=== PATIENT | female | born 1960 | race Caucasian/White ===

== ENCOUNTER 2016-11-07 10:10 | Outpatient (CLI) | payer OTHER | END 2016-11-07 23:59 | DX: E78.00 Pure hypercholesterolemia, unspecified (principal); R73.01 Impaired fasting glucose; D72.829 Elevated white blood cell count, unspecified ==

== ENCOUNTER 2017-07-18 13:09 | Outpatient (CLI) | payer OTHER ==
--- NOTE | 2017-07-30 18:03 | Mammography Report ---
DATE OF SERVICE: 07/18/2017 DIGITAL SCREENING MAMMOGRAM: 07/18/2017 CLINICAL INDICATION: A 57-year-old, for screening. COMPARISON: The patient reports having had previous mammograms in [place], [place], but films are not yet available for direct comparison. If they become available, an addendum will be issued. FINDINGS: The breasts demonstrate scattered fibroglandular densities bilaterally. Punctate, typically benign calcifications are present. No suspicious masses, clustered microcalcifications, or regions of architectural distortion are identified. IMPRESSION: BENIGN FINDINGS. RECOMMENDATION: ROUTINE ANNUAL SCREENING UNLESS OTHERWISE CLINICALLY INDICATED. BIRADS CATEGORY 2-BENIGN FINDINGS. STANDARD QUALIFYING STATEMENTS: 1. This examination was reviewed with the aid of Computer-Aided Detection (CAD). 2. A negative or benign imaging report should not delay biopsy if clinically suspicious findings are present. Consider surgical consultation if warranted. More than 5% of cancers are not identified by imaging. 3. Dense breasts may obscure an underlying neoplasm. TD: 07/30/2017 19:01
== END 2017-07-18 13:10 | disposition home or self-care (01) ==
LOC: DI.S 13:09
DX: Z12.31 Encounter for screening mammogram for malignant neoplasm of breast (principal)
CPT/HCPCS: 77067

== ENCOUNTER 2018-02-14 00:10 | Emergency (ER) | payer OTHER ==
[2018-02-14] MEDS ORDERED: IPRATROPIUM/ALBUTEROL 3 ML NEB INH STA (00:32)
[2018-02-14 01:05] VITALS: BP 115/81
--- NOTE | 2018-02-14 01:06 | XRAY Report ---
Procedure Date: 02/14/2018 Accession Number: [id number] / [id number] Procedure: XR - Chest 2 View X-Ray CPT Code: 24180 FULL RESULT: EXAM: CHEST RADIOGRAPHY EXAM DATE: 02/14/2018 12:53 AM. CLINICAL HISTORY: Chest pain COMPARISON: None. TECHNIQUE: 2 views. FINDINGS: Lungs/Pleura: No alveolar consolidation or pleural effusion seen. No pneumothorax. Mediastinum: Heart and mediastinal contours are unremarkable. Other: None. IMPRESSION: 1. No acute abnormality seen in the chest. RADIA
[2018-02-14] MEDS ORDERED: BENZONATATE 100 MG CAPSULE PO STA (01:11)
[2018-02-14] MEDS ORDERED: predniSONE 20 MG TABLET PO STA (01:11)
--- NOTE | 2018-02-14 01:19 | ED Physician Documentation ---
History of Present Illness - Stated complaint Stated Complaint: COUGH,VOMITING - Chief complaint Chief Complaint: Resp - History obtained from History obtained from: Patient - Additonal information Additional information: 57-year-old female presents the emergency department with increasing cough, nasal congestion, wheezing and posttussive emesis. The patient's symptoms have progressively worsened over the past several days. The patient reports fevers, chills and body aches. No relieving factors. No triggering factors. No other associated symptoms. The patient denies peripheral edema, chest pain or dyspnea on exertion. No other associated symptoms. Symptoms are described as moderate. Review of Systems Constitutional: reports: Fever, Chills, Fatigue Eyes: denies: Discharge Ears: denies: Ear pain Nose: reports: Rhinorrhea / runny nose, Congestion Cardiac: denies: Palpitations, Pedal edema Respiratory: reports: Cough, Wheezing GI: reports: Vomiting Skin: denies: Rash Immunocompromised: denies: Chemotherapy PD PAST MEDICAL HISTORY - Past Medical History Past Medical History: No Cardiovascular: None Respiratory: None Neuro: None Endocrine/Autoimmune: None GI: None [employer]PER[employer]OR: None : None HEENT: None Psych: None Musculoskeletal: None Derm: None - Past Surgical History Past Surgical History: Yes General: Cholecystectomy, Appendectomy, Splenectomy Ortho: Other - Present Medications Home Medications: Ambulatory Orders Medication Instructions Recorded Confirmed Albuterol Sulf [Ventolin Hfa 1 - 2 puffs INH Q4HR PRN #1 inhaler 02/14/18 Inhaler] Benzonatate [Tessalon Perle] 100 - 200 mg PO TID PRN #30 capsule 02/14/18 predniSONE [Prednisone] 60 mg PO DAILY #12 tablet 02/14/18 - Allergies Allergies/Adverse Reactions: Allergies Allergy/AdvReac Type Severity Reaction Status Date / Time Sulfa (Sulfonamide AdvReac Rash Verified 02/14/18 00:35 Antibiotics) - Social History Does the pt smoke?: No Smoking Status: Never smoker Does the pt drink ETOH?: No Does the pt have substance abuse?: No - Immunizations Immunizations are current?: Yes - POLST Patient has POLST: No PD ED PE NORMAL - General General: Alert and oriented X 3, No acute distress - HEENT HEENT: Atraumatic, PERRL, EOMI, Ears normal - Neck Neck: No JVD - Cardiac Cardiac: RRR, Strong equal pulses - Respiratory Respiratory: No respiratory distress, Other (Trace expiratory wheezesBilateral) - Extremities Extremities: No deformity, No edema - Neuro Neuro: Alert and oriented X 3, Normal speech - Psych Psych: Normal mood Results - Vitals Vitals: Vital Signs - 24 hr 02/14/18 02/14/18 02/14/18 00:22 00:56 01:04 Temperature 36.7 C Heart Rate 80 79 71 Respiratory 19 20 18 Rate Blood Pressure 142/92 H 115/81 H O2 Saturation 97 99 02/14/18 01:10 Temperature Heart Rate 82 Respiratory 14 Rate Blood Pressure 115/81 H O2 Saturation 97 Oxygen O2 Source Room air - Rads (name of study) CXR Radiology: Final report received (NAD) PD MEDICAL DECISION MAKING - ED course ED course: The patient's symptoms seem to be secondary to a viral bronchitis, the patient had improvement with a DuoNeb while in the emergency department. The patient appears appropriate for management as an outpatient. I discussed the natural course of a viral etiology. I discussed warning signs and recommended returning to the emergency department immediately for any worsening or any concerns. - Sepsis Event Vital Signs: Vital Signs - 24 hr 02/14/18 02/14/18 02/14/18 00:22 00:56 01:04 Temperature 36.7 C Heart Rate 80 79 71 Respiratory 19 20 18 Rate Blood Pressure 142/92 H 115/81 H O2 Saturation 97 99 02/14/18 01:10 Temperature Heart Rate 82 Respiratory 14 Rate Blood Pressure 115/81 H O2 Saturation 97 Oxygen O2 Source Room air Departure - Departure Disposition: 01 Home, Self Care Clinical Impression: Bronchitis Condition: Good Instructions: ED Upper Resp Infec No Abx Tx Ch, ED Reactive Airway Disease Follow-Up: Alex Merritt MD [Primary Care Provider] - Within 1 week Prescriptions: Albuterol Sulf [Ventolin Hfa Inhaler] 1 - 2 puffs INH Q4HR PRN #1 inhaler PRN Reason: Shortness Of Air/Wheezing Benzonatate [Tessalon Perle] 100 - 200 mg PO TID PRN #30 capsule PRN Reason: Cough predniSONE [Prednisone] 60 mg PO DAILY #12 tablet Comments: Please return to the emergency department for worsening symptoms or any concerns
== END 2018-02-14 01:30 | disposition home or self-care (01) ==
LOC: ED 00:10
DX: J20.8 Acute bronchitis due to other specified organisms (principal)
CPT/HCPCS: 71046; 94640; 94664; 99283; A9270; J7512

== ENCOUNTER 2018-04-03 13:04 | Outpatient (CLI) | payer OTHER ==
--- NOTE | 2018-04-03 14:10 | XRAY Report ---
Reason: COUGH CONGESTION Procedure Date: 04/03/2018 Accession Number: [id number] / [id number] Procedure: XR - Chest 2 View X-Ray CPT Code: 63058 FULL RESULT: EXAM: CHEST RADIOGRAPHY EXAM DATE: 04/03/2018 01:30 PM. CLINICAL HISTORY: Cough, congestion. COMPARISON: 02/14/2018. TECHNIQUE: 2 views. FINDINGS: Lungs/Pleura: There is new focal ill-defined nodular hyperdensity, 9 mm in diameter, superimposed with the left anterior first rib in the PA view and not visualized in the lateral view; otherwise, no focal opacities evident. No pleural effusion. No pneumothorax. Normal volumes. Mediastinum: Heart and mediastinal contours are unremarkable. Other: None. IMPRESSION: A new small non-specific left apical focal opacity versus chest wall density; otherwise, negative 2-view chest radiography. If clinical warranted, additional lordotic view exam or follow-up by chest x-ray 2 views in 4-5 weeks is recommended. RADIA
== END 2018-04-03 13:05 | disposition home or self-care (01) ==
LOC: DI 13:04
PROVIDERS: ATTEND Nurse Practitioner Family
DX: R05 Cough (principal); R09.89 Other specified symptoms and signs involving the circulatory and respiratory systems
CPT/HCPCS: 71046

== ENCOUNTER 2018-05-26 13:04 | Outpatient (CLI) | payer OTHER ==
--- NOTE | 2018-05-26 16:08 | XRAY Report ---
Reason: Cough Procedure Date: 05/26/2018 Accession Number: [id number] / [id number] Procedure: XR - Chest 3 View X-Ray CPT Code: 55063 FULL RESULT: EXAM: CHEST RADIOGRAPHY EXAM DATE: 05/26/2018 02:23 PM. CLINICAL HISTORY: Productive cough. COMPARISON: 04/03/2018. 02/14/2018. TECHNIQUE: 2 views. FINDINGS: Lungs/Pleura: No consolidation. No vascular congestion. No pneumothorax. The density previously described and noted projected along the left anterior first rib not distinctly seen on the current study and no associated parenchymal abnormality seen in the left lung apex on the apical lordotic view. Mediastinum: Heart size and mediastinal contour are stable. Other: Mild degenerative change thoracic spine. IMPRESSION: 1. No acute disease in the chest. No parenchymal lung abnormality is identified in the left lung apex to coincide with the density noted on the 04/03/2018 chest x-ray. RADIA
== END 2018-05-26 13:05 | disposition home or self-care (01) ==
LOC: DI 13:04
PROVIDERS: ATTEND Nurse Practitioner Family
DX: R05 Cough (principal)
CPT/HCPCS: 71047

== ENCOUNTER 2018-06-23 13:27 | Outpatient (CLI) | payer OTHER | END 2018-06-23 13:28 | disposition home or self-care (01) | LOC: RT 13:27 | PROVIDERS: ATTEND Nurse Practitioner Family | DX: R05 Cough (principal) | CPT/HCPCS: 94010 ==

== ENCOUNTER 2020-02-07 07:17 | Outpatient (CLI) | payer OTHER ==
[2020-02-07 15:06] LABS: BASOPHILS # (AUTO) 0.1 10^3/uL (0.0-0.1); EOSINOPHILS # (AUTO) 0.3 10^3/uL (0.0-0.7); EOSINOPHILS % (AUTO) 3.4 %; HGB - HEMOGLOBIN 14.2 g/dL (12.0-16.0); LYMPHOCYTES # (AUTO) 3.9 10^3/uL (1.5-3.5); LYMPHOCYTES % (AUTO) 47.7 %; MEAN CORPUSCULAR HEMOGLOBIN 32.7 pg (27.0-31.0); MEAN CORPUSCULAR HGB CONC 33.1 g/dL (32.0-36.0); MEAN CORPUSCULAR VOLUME 98.8 fL (81.0-99.0); MEAN PLATELET VOLUME 10.2 fL (7.9-10.8); MONOCYTES # (AUTO) 0.8 10^3/uL (0.0-1.0); MONOCYTES % (AUTO) 9.4 %; NEUTROPHILS # (AUTO) 3.2 10^3/uL (1.5-6.6); NEUTROPHILS % (AUTO) 38.3 %; PLT - PLATELET COUNT 470 10^3/uL (130-450); RED BLOOD COUNT 4.34 10^6/uL (4.20-5.40); RED CELL DISTRIBUTION WIDTH 13.7 % (12.0-15.0); WHITE BLOOD COUNT 8.2 x10^3/uL (4.8-10.8)
[2020-02-07 15:31] LABS: ALBUMIN 4.4 g/dL (3.2-5.5); ALBUMIN/GLOBULIN RATIO 1.5 (1.0-2.2); ALKALINE PHOSPHATASE 85 IU/L (42-121); ALT ALANINE AMINOTRANSFERASE 29 IU/L (10-60); AST ASPARTATE AMINOTRANSFERASE 26 IU/L (10-42); BILIRUBIN,TOTAL 0.5 mg/dL (0.2-1.0); BUN - BLOOD UREA NITROGEN 17 mg/dL (6-20); CALCIUM 9.4 mg/dL (8.5-10.3); CARBON DIOXIDE - CO2 27 mmol/L (21-32); CHLORIDE 104 mmol/L (101-111); CHOL/HDL RATIO 4.2 (<4.4); CHOLESTEROL 242 mg/dL; CREATININE 0.7 mg/dL (0.4-1.0); GLUCOSE 102 mg/dL (70-100); HDL CHOLESTEROL 58 mg/dL; LDL CHOLESTEROL,CALCULATED 132 mg/dL; LDL/HDL RATIO 2.3 (<4.4); SODIUM 138 mmol/L (135-145); TOTAL PROTEIN 7.4 g/dL (6.7-8.2); VLDL CHOLESTEROL 52 mg/dL
[2020-02-08 10:44] LABS: HEPATITIS C ANTIBODY NON-REACTIVE (NON-REACTIVE)
== END 2020-02-07 07:18 | disposition home or self-care (01) ==
LOC: LAB.S 07:17
PROVIDERS: ATTEND Internal Medicine
DX: Z13.6 Encounter for screening for cardiovascular disorders (principal); Z79.899 Other long term (current) drug therapy; F32.9 Major depressive disorder, single episode, unspecified; D72.9 Disorder of white blood cells, unspecified; F41.9 Anxiety disorder, unspecified; G47.00 Insomnia, unspecified; Z11.59 Encounter for screening for other viral diseases; Z90.81 Acquired absence of spleen
CPT/HCPCS: 36415; 80053; 80061; 82306; 83721; 84443; 85025; 86803

== ENCOUNTER 2020-10-12 14:36 | Outpatient (CLI) | payer OTHER ==
--- NOTE | 2020-10-12 17:08 | XRAY Report ---
PROCEDURE: Chest 2 View X-Ray INDICATIONS: COUGH TECHNIQUE: 2 view(s) of the chest. COMPARISON: 05/26/2018. FINDINGS: Surgical changes and devices: None. Lungs and pleura: No pleural effusions or pneumothorax. Lungs are clear. Mediastinum: Mediastinal contours are normal. Heart size is normal. Bones and chest wall: No suspicious bony abnormalities. Soft tissues appear unremarkable. IMPRESSION: Stable examination of the chest without acute cardiopulmonary abnormalities. Reviewed by: Bro Barone MD on 10/12/2020 5:06 PM PDT Approved by: Bro Barone MD on 10/12/2020 5:06 PM PDT Station ID: [id number]
== END 2020-10-12 14:37 | disposition home or self-care (01) ==
LOC: DI 14:36
PROVIDERS: ATTEND Internal Medicine
DX: R05 Cough (principal)

== ENCOUNTER 2021-01-11 14:05 | Outpatient (CLI) | payer OTHER ==
--- NOTE | 2021-01-12 11:23 | Mammography Report ---
BILATERAL DIGITAL SCREENING MAMMOGRAM 3D/2D: 01/11/2021 CLINICAL: Routine screening. Comparison is made to exams dated: 11/13/2018 mammogram and 07/18/2017 mammogram - [facility]. The tissue of both breasts is predominantly fatty. There is architectural distortion in the right breast posterior depth central to the nipple seen on t he craniocaudal view only. There also is a mass in the right breast at 9 o'clock anterior depth. No other significant masses, calcifications, or other findings are seen in either breast. IMPRESSION: INCOMPLETE: NEEDS ADDITIONAL IMAGING EVALUATION The architectural distortion in the right breast posterior depth central to the nipple seen on the cr aniocaudal view only is indeterminate. Additional views with possible ultrasound are recommended. The mass in the right breast at 9 o'clock anterior depth is indeterminate. Additional views with pos sible ultrasound are recommended. This exam was interpreted at Station ID: [id number]. NOTE: For mammograms, a report in lay terms will be sent to the patient. Approximately 15% of breast malignancies will not be visualized mammographically. In the management of a palpable breast mass, a negative mammogram must not discourage biopsy of a clinically suspicious lesion. Electronically Signed By: Nasir Hurley M.D., jr/zoya:01/11/2021 16:20:14 ACR BI-RADS Category 0: Incomplete 3340F PARENCHYMAL PATTERN: (F) - The breast(s) demonstrate(s) diffuse fatty replacement. BI-RADS CATEGORY: (0) - 0 RECOMMENDATION: (ADDMAM) - Recommend additional mammographic views. [id number] Immediate follow-up LATERALITY: (B)
== END 2021-01-11 14:06 | disposition home or self-care (01) ==
LOC: DI 14:05
DX: Z12.31 Encounter for screening mammogram for malignant neoplasm of breast (principal); R92.8 Other abnormal and inconclusive findings on diagnostic imaging of breast

== ENCOUNTER 2021-02-07 11:14 | Outpatient (CLI) | payer OTHER ==
--- NOTE | 2021-02-08 12:10 | Ultrasound Report ---
LIMITED ULTRASOUND OF RIGHT BREAST: 02/07/2021 CLINICAL: Patient returns today to evaluate a focal asymmetry in the right breast. Comparison is made to exams dated: 02/07/2021 mammogram, 01/11/2021 mammogram, 11/13/2018 mammogram, and 07/18/2017 mammogram - [facility]. Color flow ultrasound of the right breast 7-11 o'clock, and retroareolar regions was performed on the areas of interest. Lomeli scale images of the real-time examination were reviewed. There is a 0.5 cm x 0.2 cm x 0.4 cm oval cyst with a septated internal wall in the right breast at 6 o'clock anterior depth. This oval cyst is hypoechoic with a well-defined boundary and posterior acou stic enhancement. This correlates with mammography findings. Color flow imaging demonstrates that t here is no vascularity present. No discrete cystic or solid mass lesion identified in the area of mammographic abnormality in the pos terior lateral right breast. IMPRESSION: PROBABLY BENIGN The 0.5 cm x 0.2 cm x 0.4 cm oval cyst in the right breast is consistent with a complicated cyst and is probably benign. A follow-up ultrasound in 6 months is recommended. There are no abnormalities seen in the right breast to correspond with the possible architectural dis tortion in the posterior lateral right breast which resolved on additional views. A follow-up ultrasound in 6 months is recommended to demonstrate stability of the complicated cyst. This exam was interpreted at Station ID: [id number]. Electronically Signed By: Stan Romero M.D. ddp/:02/07/2021 12:39:41 Ultrasound BI-RADS: 3 Probably benign BI-RADS CATEGORY: (3) - 3 Ultrasound [id number] 6 month follow-up LATERALITY: (B)
--- NOTE | 2021-02-08 12:10 | Mammography Report ---
UNILATERAL RIGHT DIGITAL DIAGNOSTIC MAMMOGRAM 3D/2D: 02/07/2021 CLINICAL: Patient returns today to evaluate a focal asymmetry in the right breast. Comparison is made to exams dated: 01/11/2021 mammogram, 11/13/2018 mammogram, and 07/18/2017 mammogram - [facility]. There are scattered fibroglandular elements in right breast. There is a 0.5 cm oval equal density mass with a circumscribed margin in the right breast at 6 o'cloc k anterior depth. The architectural distortion with indistinct margins in the right breast posterior depth central to t he nipple seen on the craniocaudal view only is no longer seen on additional views. No other significant masses or calcifications are seen in the breast. IMPRESSION: INCOMPLETE: NEEDS ADDITIONAL IMAGING EVALUATION The 0.5 cm oval equal density mass in the right breast at 6 o'clock anterior depth is indeterminate. An ultrasound is recommended. An ultrasound is recommended to confirm the area of resolved architectural distortion in the right br east posterior depth central to the nipple seen on the craniocaudal view only. Ultrasound will be performed immediately following the current exam. This exam was interpreted at Station ID: [id number]. NOTE: For mammograms, a report in lay terms will be sent to the patient. Approximately 15% of breast malignancies will not be visualized mammographically. In the management of a palpable breast mass, a negative mammogram must not discourage biopsy of a clinically suspicious lesion. Electronically Signed By: Stan Romero M.D. ddp/:02/07/2021 12:16:15 ACR BI-RADS Category 0: Incomplete 3340F PARENCHYMAL PATTERN: (A) - The breast(s) demonstrate(s) scattered fibroglandular densities. BI-RADS CATEGORY: (0) - 0 Ultrasound [id number] Immediate follow-up LATERALITY: (B)
== END 2021-02-07 11:15 | disposition home or self-care (01) ==
LOC: DI 11:14
PROVIDERS: ATTEND Internal Medicine
DX: N60.01 Solitary cyst of right breast (principal)

== ENCOUNTER 2021-08-03 13:50 | Outpatient (CLI) | payer OTHER ==
--- NOTE | 2021-08-06 09:35 | Ultrasound Report ---
LIMITED ULTRASOUND OF RIGHT BREAST: 08/03/2021 CLINICAL: Short term follow up of the right breast. Comparison is made to exams dated: 02/07/2021 ultrasound, 02/07/2021 mammogram, 01/11/2021 mammogram, 11/13/2018 mammogram, and 07/18/2017 mammogram - [facility]. Color flow and real-time ultrasound of the right breast 6 o'clock region were performed. Lomeli scale images of the real-time examination were reviewed. There is a stable benign 0.5 cm x 0.2 cm x 0.4 cm oval cyst with a septated internal wall in the righ t breast at 6 o'clock anterior depth. This oval cyst is hypoechoic with a well-defined boundary and posterior acoustic enhancement. This correlates with mammography findings. Color flow imaging demon strates that there is no vascularity present. IMPRESSION: BENIGN There is no sonographic evidence of malignancy. The stable 0.5 cm x 0.2 cm x 0.4 cm oval cyst in the right breast is consistent with a complicated cy st and is benign. There are no abnormalities seen in the right breast to correspond with the mammography findings at 7, 8, 9, 10, and 11 o'clock in the posterior depth. Return to annual mammogram screening schedule is recommended. This exam was interpreted at Station ID: [id number]. Electronically Signed By: Nasir Hurley M.D., jr/zoya:08/03/2021 14:23:46 Ultrasound BI-RADS: 2 Benign BI-RADS CATEGORY: (2) - 2 Mammogram [id number] return to screening LATERALITY: (B)
== END 2021-08-03 13:51 | disposition home or self-care (01) ==
LOC: DI 13:50
PROVIDERS: ATTEND Internal Medicine
DX: N60.01 Solitary cyst of right breast (principal)

== ENCOUNTER 2022-02-01 08:00 | Outpatient (CLI) | payer OTHER ==
[2022-02-01 16:18] LABS: BASOPHILS # (AUTO) 0.1 10^3/uL (0.0-0.1); BASOPHILS % (AUTO) 1.1 %; EOSINOPHILS # (AUTO) 0.2 10^3/uL (0.0-0.7); EOSINOPHILS % (AUTO) 2.4 %; HCT - HEMATOCRIT 40.6 % (37.0-47.0); HGB - HEMOGLOBIN 13.6 g/dL (12.0-16.0); LYMPHOCYTES # (AUTO) 3.8 10^3/uL (1.5-3.5); LYMPHOCYTES % (AUTO) 38.9 %; MEAN CORPUSCULAR HEMOGLOBIN 31.7 pg (27.0-31.0); MEAN CORPUSCULAR HGB CONC 33.5 g/dL (32.0-36.0); MEAN CORPUSCULAR VOLUME 94.6 fL (81.0-99.0); MEAN PLATELET VOLUME 10.1 fL (7.9-10.8); MONOCYTES # (AUTO) 0.9 10^3/uL (0.0-1.0); NEUTROPHILS # (AUTO) 4.7 10^3/uL (1.5-6.6); NEUTROPHILS % (AUTO) 48.5 %; PLT - PLATELET COUNT 431 10^3/uL (130-450); RED BLOOD COUNT 4.29 10^6/uL (4.20-5.40); RED CELL DISTRIBUTION WIDTH 13.7 % (12.0-15.0); WHITE BLOOD COUNT 9.7 x10^3/uL (4.8-10.8)
[2022-02-01 16:45] LABS: ALBUMIN 4.7 g/dL (3.2-5.5); ALBUMIN/GLOBULIN RATIO 1.6 (1.0-2.2); ALKALINE PHOSPHATASE 70 IU/L (42-121); ALT ALANINE AMINOTRANSFERASE 25 IU/L (10-60); AST ASPARTATE AMINOTRANSFERASE 25 IU/L (10-42); BILIRUBIN,TOTAL 0.9 mg/dL (0.2-1.0); BUN - BLOOD UREA NITROGEN 15 mg/dL (6-20); CALCIUM 9.8 mg/dL (8.5-10.3); CARBON DIOXIDE - CO2 28 mmol/L (21-32); CHLORIDE 98 mmol/L (101-111); CHOL/HDL RATIO 4.2 (<4.4); CHOLESTEROL 254 mg/dL; CREATININE 0.7 mg/dL (0.4-1.0); GFR - MDRD 85 (>89); GLUCOSE 98 mg/dL (70-100); HDL CHOLESTEROL 61 mg/dL; LDL CHOLESTEROL,CALCULATED 139 mg/dL; LDL/HDL RATIO 2.3 (<4.4); POTASSIUM 3.8 mmol/L (3.5-5.0); SODIUM 135 mmol/L (135-145); TOTAL PROTEIN 7.7 g/dL (6.7-8.2); TRIGLYCERIDES 268 mg/dL; VLDL CHOLESTEROL 54 mg/dL
[2022-02-01 20:29] LABS: ESTIMATED AVERAGE GLUCOSE 126 mg/dL (70-100)
== END 2022-02-01 23:59 | disposition home or self-care (01) ==
LOC: LAB.R 08:00
PROVIDERS: ATTEND Internal Medicine
DX: Z00.00 Encounter for general adult medical examination without abnormal findings (principal); F32.A Depression, unspecified; R73.01 Impaired fasting glucose; G47.00 Insomnia, unspecified; Z12.12 Encounter for screening for malignant neoplasm of rectum; Z12.11 Encounter for screening for malignant neoplasm of colon; D47.3 Essential (hemorrhagic) thrombocythemia; D72.9 Disorder of white blood cells, unspecified; Z90.81 Acquired absence of spleen
CPT/HCPCS: 80053; 80061; 83036; 83721; 84443; 85025

== ENCOUNTER 2023-04-22 10:47 | Outpatient (CLI) | payer OTHER ==
--- NOTE | 2023-04-23 10:43 | Mammography Report ---
BILATERAL DIGITAL SCREENING MAMMOGRAM 3D/2D: 04/22/2023 CLINICAL: Routine screening. Comparison is made to exams dated: 11/13/2018 mammogram, 01/11/2021 mammogram, 02/07/2021 mammogram, and 07/18/2017 mammogram - [facility]. There are scattered areas of fibroglandular density in both breasts (category b / 25%-50% glandular t issue). No significant masses, calcifications, or other findings are seen in either breast. IMPRESSION: NEGATIVE There is no mammographic evidence of malignancy. A 1 year screening mammogram is recommended. Based on the Tyrer Cuzick model (a risk assessment model) the patients lifetime risk is 5.8% and her 10 year risk is 2.7%. According to the ACR, ACS, and NCCN guidelines, an annual breast MRI exam winter g with mammogram is recommended if the patients lifetime risk is 20% or greater. This exam was interpreted at Station ID: [id number]. NOTE: For mammograms, a report in lay terms will be sent to the patient. Approximately 15% of breast malignancies will not be visualized mammographically. In the management of a palpable breast mass, a negative mammogram must not discourage biopsy of a clinically suspicious lesion. Electronically Signed By: Olga Lidia ha/zoya:04/22/2023 17:41:10 letter sent: No_Letter ACR BI-RADS Category 1: Negative 3341F PARENCHYMAL PATTERN: (A) - The breast(s) demonstrate(s) scattered fibroglandular densities. BI-RADS CATEGORY: (1) - 1 Mammogram [id number] 1 year screening LATERALITY: (B)
== END 2023-04-22 10:48 | disposition home or self-care (01) ==
LOC: DI.S 10:47
PROVIDERS: ATTEND Internal Medicine
DX: Z12.31 Encounter for screening mammogram for malignant neoplasm of breast (principal); R92.323 Mammographic fibroglandular density, bilateral breasts

== ENCOUNTER 2023-09-03 08:00 | Outpatient (CLI) | payer OTHER ==
[2023-09-03 20:07] LABS: BILIRUBIN,URINE NEGATIVE (NEGATIVE); GLUCOSE, URINE (UA) NEGATIVE (NEGATIVE); KETONES,URINE (UA) NEGATIVE (NEGATIVE); LEUKOCYTE ESTERASE, URINE NEGATIVE (NEGATIVE); NITRITE,URINE NEGATIVE (NEGATIVE); OCCULT BLOOD,URINE NEGATIVE (NEGATIVE); PROTEIN,URINE NEGATIVE (NEGATIVE); UROBILINOGEN,URINE 0.2 (NORMAL) E.U./dL (NORMAL)
[2023-09-03 20:10] LABS: CLARITY,URINE CLEAR (CLEAR)
== END 2023-09-03 23:59 | disposition home or self-care (01) ==
LOC: LAB.S 08:00
PROVIDERS: ATTEND Emergency Medicine
DX: R35.0 Frequency of micturition (principal)
CPT/HCPCS: 81001; 81003; 87086

== ENCOUNTER 2023-12-27 08:00 | Outpatient (CLI) | payer OTHER ==
--- NOTE | 2023-12-28 07:15 | XRAY Report ---
PROCEDURE: Chest 2V INDICATIONS: ACUTE COUGH TECHNIQUE: 2 views of the chest were acquired. COMPARISON: 10/12/2020 FINDINGS: Surgical changes and devices: None. Lungs and pleura: No dense consolidation or pleural effusion. There is mild peribronchial cuffing. Mediastinum: Normal heart size Bones and chest wall: Degenerative changes IMPRESSION: No airspace consolidation or pleural effusion. Mild peribronchial cuffing could represent viral infec tion/bronchitis. Reviewed by: Eddie Mireles MD on 12/28/2023 7:14 AM PDT Approved by: Eddie Mireles MD on 12/28/2023 7:14 AM PDT Station ID: [id number]
== END 2023-12-27 23:59 | disposition home or self-care (01) ==
LOC: DI.S 08:00
PROVIDERS: ATTEND Registered Nurse
DX: R05.1 Acute cough (principal)

== ENCOUNTER 2024-04-05 08:22 | Outpatient (CLI) | payer MEDICARE, BC ==
[2024-04-05 15:13] LABS: BASOPHILS # (AUTO) 0.1 10^3/uL (0.0-0.1); BASOPHILS % (AUTO) 1.6 %; EOSINOPHILS # (AUTO) 0.2 10^3/uL (0.0-0.7); EOSINOPHILS % (AUTO) 2.9 %; HCT - HEMATOCRIT 44.4 % (37.0-47.0); HGB - HEMOGLOBIN 14.2 g/dL (12.0-16.0); LYMPHOCYTES # (AUTO) 3.3 10^3/uL (1.5-3.5); LYMPHOCYTES % (AUTO) 45.2 %; MEAN CORPUSCULAR HEMOGLOBIN 30.8 pg (27.0-31.0); MEAN CORPUSCULAR VOLUME 96.3 fL (81.0-99.0); MEAN PLATELET VOLUME 9.9 fL (7.9-10.8); MONOCYTES # (AUTO) 0.7 10^3/uL (0.0-1.0); MONOCYTES % (AUTO) 9.7 %; NEUTROPHILS % (AUTO) 40.3 %; PLT - PLATELET COUNT 469 10^3/uL (130-450); RED BLOOD COUNT 4.61 10^6/uL (4.20-5.40); RED CELL DISTRIBUTION WIDTH 14.3 % (12.0-15.0); WHITE BLOOD COUNT 7.3 x10^3/uL (4.8-10.8)
[2024-04-05 15:53] LABS: ALBUMIN 4.5 g/dL (3.2-5.5); ALBUMIN/GLOBULIN RATIO 1.4 (1.0-2.2); BILIRUBIN,TOTAL 0.7 mg/dL (0.2-1.0); CALCIUM 9.7 mg/dL (8.5-10.3); CREATININE 0.7 mg/dL (0.6-1.3); POTASSIUM 4.1 mmol/L (3.5-4.5); TOTAL PROTEIN 7.7 g/dL (6.4-8.9)
== END 2024-04-05 08:23 | disposition home or self-care (01) ==
LOC: LAB.S 08:22
PROVIDERS: ATTEND Nurse Practitioner Adult Health
DX: Z00.00 Encounter for general adult medical examination without abnormal findings (principal); Z12.11 Encounter for screening for malignant neoplasm of colon; Z13.6 Encounter for screening for cardiovascular disorders
CPT/HCPCS: 36415; 80053; 80061; 81599; 82274; 83721; 85025

== ENCOUNTER 2024-04-07 09:06 | Outpatient (CLI) | payer MEDICARE, BC ==
[2024-04-07 10:12] LABS: FECAL OCCULT BLOOD (FIT) NEGATIVE (NEGATIVE)
== END 2024-04-07 09:07 | disposition home or self-care (01) ==
LOC: LAB.R 09:06
PROVIDERS: ATTEND Nurse Practitioner Adult Health
DX: Z00.00 Encounter for general adult medical examination without abnormal findings (principal); Z12.11 Encounter for screening for malignant neoplasm of colon; Z13.6 Encounter for screening for cardiovascular disorders
CPT/HCPCS: 82274